=== PATIENT | male | born 1960 | race American Indian/Alaskan Native ===

== ENCOUNTER 2019-08-23 07:38 | Day surgery (SDC) | payer OTHER ==
[~2019-08-23 07:38] MED LIST: SODIUM CHLORIDE 0.9% 1000 ML 1,000 ML IV SCH
--- NOTE | 2019-08-23 08:39 | Anesthesia Consultation ---
Anesthesia Consult and Med Hx Date of service: 08/23/19 - Airway Anesthetic Teeth Evaluation: Good ROM Head & Neck: Adequate Mental/Hyoid Distance: Adequate Mallampati Class: Class I Intubation Access Assessment: Good - Pre-Operative Health Status ASA Pre-Surgery Classification: ASA3 Proposed Anesthetic Plan: MAC - Pulmonary Hx Smoking: No (past smoker) Hx Asthma: No Hx Respiratory Symptoms: No SOB: No COPD: No Home Oxygen Therapy: No Hx Pneumonia: No Hx Sleep Apnea: Yes - Cardiovascular System Hx Hypertension: Yes Hx Coronary Artery Disease: No Hx Heart Attack/AMI: No Hx Angina: No Hx Percutaneous Transluminal Coronary Angioplasty (PTCA): No Hx Cardia Arrhythmia: No Hx Pacemaker: No Hx Internal Defibrillator: No Hx Valvular Heart Disease: No Hx Heart Murmur: No Hx Peripheral Vascular Disease: No - Central Nervous System Hx Neuromuscular Disorder: No Hx Seizures: No CVA: No Hx Back Pain: No Hx Psychiatric Problems: No - Gastrointestinal Hx Ulcer: No Hx Gastroesophageal Reflux Disease: Yes (omeprazole) - Endocrine Hx Renal Disease: No Hx End Stage Renal Disease: No Hx Cirrhosis: No Hx Liver Disease: No Hx Insulin Dependent Diabetes: Yes (metformin and insulin) Hx Non-Insulin Dependent Diabetes: No Hx Thyroid Disease: No Hx Hypothyroidism: No Hx Hyperthyroidism: No - Hematic Hx Anemia: No Hx Sickle Cell Disease: No - Other Systems Hx Alcohol Use: Yes (occ.) Hx Substance Use: No Hx Cancer: No Hx Obesity: Yes
--- NOTE | 2019-08-23 08:41 | Anesthesia Day of Surgery ---
Anesthesia Day of Surgery - Day of Surgery Patient Examined: Yes Patient H&P Reviewed: Yes Patient is NPO: Yes Beta Blockers: No
[2019-08-23] MEDS ORDERED: WATER FOR IRRIG STERILE 250 ML BOTTLE IR ONE (08:51)
[2019-08-23] MEDS ORDERED: WATER FOR IRRIG STERILE 1,000 ML BOTTLE ONE (08:51)
[2019-08-23] MEDS ORDERED: PROPOFOL 200 MG/20 ML VIAL IV ONE ×2 (08:53)
[2019-08-23] MEDS ORDERED: LIDOCAINE MPF (2%) 20 MG/1 ML VIAL 5 ML ONE (09:00)
--- NOTE | 2019-08-23 09:45 | Procedure Note ---
Date of procedure: 08/23/19 Pre-op diagnosis: Abdominal Pain (Left Upper Quadrant)/ H/O Pre-cancerous Colon Polyp Post-op diagnosis: other (Esophagitis/Gastritis/Gastric Nodule/R/O Eosinophilic Esophagitis/R/O Celiac Disease/H/O Colon Polyp (none now)/Mild to Moderate Internal Hemorrhoid) Procedure: EGD with Biopsy/ Colonoscopy [place] [facility] [place]geon: ALISIA OLIVERA Estimated blood loss: minimal Pathology: list Specimen disposition: to lab Condition: stable Disposition: same day (Treat with PPI,prn Bentyl and Probiotic. Avoid aspirin and NSAID for 4 days; otherwise resume home medication. Follow up in 1 to 2 weeks ([phone]).)
--- NOTE | 2019-08-23 09:55 | Operative Report ---
PROCEDURE: EGD with biopsy. INDICATIONS: This is a 59-year-old -[place] gentleman with an underlying history of diabetes, hypertension and family history of cancer. The patient had a colonoscopy done a year or so back and had a precancerous colon polyp at that time. Lately, he has been having abdominal pain and discomfort involving the left upper quadrant, which had prompted him to go to the ER on several occasions. CT scan did not show any significant pathology. Because of persistence of his abdominal pain, an EGD was done. The patient had just come for a colonoscopy, but an EGD was done and a colonoscopy was also done. DESCRIPTION OF PROCEDURE: The EGD was done after getting informed consent with MAC anesthesia. Instrument was passed through the hypopharynx into the esophagus, which showed some mild to moderate distal erosive esophagitis. Stomach showed a gastric nodule in the proximal stomach as well as evidence of mild gastritis with patent pylorus and the duodenum in the first and second portion appeared normal. Biopsy was done from the second part to rule out for possible celiac disease. Biopsy was also done from the gastric antrum, gastric body and angular incisura to rule out for H. pylori and atrophic gastritis and from the midesophagus to rule out for possible eosinophilic esophagitis. There was minimal bleeding from the biopsy sites. No complications associated with the procedure. ASSESSMENT: Upper abdominal pain involving the left upper quadrant, mild to moderate erosive esophagitis, gastritis with a gastric nodule in the proximal stomach to rule out eosinophilic esophagitis, rule out celiac disease. PLAN: To treat the patient with PPI, p.r.n. dose of Bentyl. Encouraged the patient to take probiotics. The patient will also have a colonoscopy done for further assessment. There was minimal bleeding associated with the procedure and no complications associated with the procedure. The patient will be asked to avoid aspirin and aspirin-related products for the next few days. Otherwise, resume home medication and follow up in the office in 1-2 weeks' time. The procedure was done in the GI lab with assistance of the GI lab team, which included Ann AG, Jim balderas and with assistance of anesthesia. The patient will also undergo a colonoscopy. JOB# [id number] SOPHIA/CHANCE
--- NOTE | 2019-08-23 09:59 | Operative Report ---
PROCEDURE: Colonoscopy. INDICATIONS: This is a 59-year-old -[place] gentleman who had a colonoscopy done a year back and was told that he had a precancerous polyp that had been removed at that time. Repeat colonoscopy was done to make sure there was not any recurrence of any polyps or any other polyp remnant present. The procedure was done. He does have a family history of cancer. Both his parents have had cancer. He has an underlying history of diabetes and hypertension. EGD was done prior to the colonoscopy, which showed presence of [id number] distal erosive esophagitis and gastritis. DESCRIPTION OF PROCEDURE: Colonoscopy was done after getting informed consent with MAC anesthesia. Initial rectal exam was unremarkable. Instrument was passed through the rectum onto the cecum, which was identified with ileocecal valve and the appendiceal orifice. The cecum was also visualized in the retroverted view and no additional pathology was noted. Cecum, ascending colon, transverse colon, descending colon, and sigmoid showed normal mucosa. There was no evidence of any polyps, colitis or diverticular disease and the rectum showed [id number] internal hemorrhoid on the retroverted view. There was no bleeding associated with the procedure. No complications associated with the procedure. ASSESSMENT: History of colon polyp that was precancerous. No colon polyps present at the moment. [id number] internal hemorrhoid. PLAN: To treat the patient because of the EGD findings of esophagitis and gastritis with PPI, p.r.n. dose of Bentyl and probiotics, and have the patient resume home medications, except for aspirin and aspirin-related products, which will be held for 3-4 days and follow up in the office in 1-2 weeks' time. The procedure was done in the GI lab with the assistance of the GI lab team, which included Enedina AG, Jim balderas, and the assistance of anesthesia. JOB# [id number] SOPHIA/CHANCE
[2019-08-23 10:02] VITALS: BP 147/80
--- NOTE | 2019-08-23 15:30 | Post Anesthesia Evaluation ---
- Post Anesthesia Evaluation Patient Participated: Yes Airway Patent: Yes Stable Respiratory Function: Yes Nausea/Vomiting: No Temp > 96.8F: Yes Pain Manageable: Yes Adequeate Hydration: Yes Anesthesia Complications: No Block Receding Appropriately: Not Applicable Patient on Ventilator: No
== END 2019-08-23 10:02 | disposition home or self-care (01) ==
LOC: GIO 07:38
DX: Z12.11 Encounter for screening for malignant neoplasm of colon (principal); K29.70 Gastritis, unspecified, without bleeding; K21.0 Gastro-esophageal reflux disease with esophagitis; K64.8 Other hemorrhoids; K31.89 Other diseases of stomach and duodenum; E11.9 Type 2 diabetes mellitus without complications; I10 Essential (primary) hypertension; G47.30 Sleep apnea, unspecified; E66.9 Obesity, unspecified; Z68.32 Body mass index [BMI] 32.0-32.9, adult; Z72.89 Other problems related to lifestyle; Z87.891 Personal history of nicotine dependence; Z86.010 Personal history of colon polyps; Z80.0 Family history of malignant neoplasm of digestive organs; Z79.899 Other long term (current) drug therapy; Z79.4 Long term (current) use of insulin; Z79.84 Long term (current) use of oral hypoglycemic drugs
CPT/HCPCS: 43239; 45378; 82962; 88305; 88342; J2704; J7030